=== PATIENT | female | born 1980 ===

== ENCOUNTER 2021-06-07 06:00 | Day surgery (SDC) | payer OTHER ==
[2021-06-07] MEDS ORDERED: MONODOX100 MG PO (18:26)
[2021-06-07] MEDS ORDERED: IBU600 MG PO (18:26)
== END 2021-06-07 21:20 | disposition home or self-care (01) ==
LOC: CIR.AMB 06:00
PROVIDERS: ATTEND Obstetrics & Gynecology
DX: N84.0 Polyp of corpus uteri (principal); Z86.16 Personal history of COVID-19; E66.9 Obesity, unspecified; Z20.822 Contact with and (suspected) exposure to COVID-19